=== PATIENT | female | born 1990 ===

== ENCOUNTER 2020-01-28 07:21 | Inpatient (IN) | payer BC ==
[2020-01-28] MEDS ORDERED: Ondansetron 4 MG/2 ML SDV IVPUSH PRN (08:20)
[2020-01-28] MEDS ORDERED: Tranexamic Acid 1,000 MG in Sodium Chloride 0.9% 100 ML IV PRN (08:20)
[2020-01-28] MEDS ORDERED: Nalbuphine 10 MG/1 ML Vial IVPUSH PRN (08:20)
[2020-01-28] MEDS ORDERED: Carboprost Tromethamine 250 MCG/1 ML Amp IM PRN (08:20)
[2020-01-28] MEDS ORDERED: Methylergonovine 0.2 MG/1 ML Amp IM PRN (08:20)
[2020-01-28] MEDS ORDERED: Sodium Chloride 0.9% 10 ML SDV IV PRN (08:20)
[2020-01-28] MEDS ORDERED: Lidocaine 1% 50 ML MDV INJECT PRN (08:20)
[2020-01-28] MEDS ORDERED: Misoprostol 25 MCG (1/4 of 100 MCG) Tab PO PRN (08:20)
[2020-01-28] MEDS ORDERED: Sodium Chloride 0.9% 10 ML Syringe FLUSH PRN (08:20)
[2020-01-28] MEDS ORDERED: Terbutaline 1 MG/ML SDV SUBCUT PRN (08:20)
[2020-01-28] MEDS ORDERED: Misoprostol 200 MCG Tab PO PRN (08:20)
[2020-01-28] MEDS ORDERED: Sodium Chloride 0.9% 2.5 ML Syringe FLUSH PRN (08:20)
[2020-01-28] MEDS ORDERED: Misoprostol 25 MCG (1/4 of 100 MCG) Tab VAG PRN (08:20)
[2020-01-28] MEDS ORDERED: Water For Irrigation,Sterile 1,000 ML Container IRR PRN (08:20)
[2020-01-28] MEDS ORDERED: Oxytocin/0.9 % Sodium Chloride 30 UNIT/500 ML BAG IV SCH ×2 (08:30)
[2020-01-28] MEDS: Lactated Ringers 1,000 ML IV SCH ×2 (13:28→16:56)
[2020-01-28] MEDS: Butorphanol 1 MG/ML SDV IVPUSH PRN ×2 (13:30→14:47)
[2020-01-28] MEDS ORDERED: Ropivacaine 0.2% PF 2 MG/ML 20 ML SDV ONE (17:18)
[2020-01-28] MEDS ORDERED: Bupivicaine/fentaNYL/NS 250 ML ONE (17:18)
--- NOTE | 2020-01-28 17:53 | PCM.PREANE ---
Preanesthetic Assessment - Procedure Proposed Procedure: labor epidural - Anesthesia/Transfusion/Family Hx Anesthesia History: Prior Anesthesia Without Reaction (gastric sleeve) Family History of Anesthesia Reaction: No Transfusion History: No Prior Transfusion(s) - Review of Systems General: No Symptoms Pulmonary: No Symptoms Cardiovascular: No Symptoms Gastrointestinal: No Symptoms Neurological: No Symptoms Other: Reports: None - Physical Assessment Height: 5 ft 5 in Weight: 78.925 kg ASA Class: 2 Mental Status: Alert & Oriented x3 Airway Class: Mallampati = 1 Dentition: Reports: Normal Dentition Thyro-Mental Finger Breadths: 3 Mouth Opening Finger Breadths: 3 ROM/Head Extension: Full Lungs: Clear to Auscultation, Normal Respiratory Effort Cardiovascular: Regular Rate, Regular Rhythm - Lab Values: Laboratory Last Values WBC 12.24 K/uL (4.0-11.0) H 01/28/20 08:55 RBC 5.05 M/uL (4.30-5.90) 01/28/20 08:55 Hgb 11.4 g/dL (12.0-16.0) L 01/28/20 08:55 Hct 37.3 % (36.0-46.0) 01/28/20 08:55 MCV 73.9 fL (80.0-98.0) L 01/28/20 08:55 MCH 22.6 pg (27.0-32.0) L 01/28/20 08:55 MCHC 30.6 g/dL (31.0-37.0) L 01/28/20 08:55 RDW Std Deviation 47.8 fl (28.0-62.0) 01/28/20 08:55 RDW Coeff of Madonna 18 % (11.0-15.0) H 01/28/20 08:55 Plt Count 175 K/uL (150-400) 01/28/20 08:55 Nucleated RBC % 0.0 /100WBC 01/28/20 08:55 Nucleated RBCs # 0 K/uL 01/28/20 08:55 Blood Type O POSITIVE 01/28/20 08:55 Antibody Screen NEGATIVE 01/28/20 08:55 - Allergies Allergies/Adverse Reactions: Allergies Allergy/AdvReac Type Severity Reaction Status Date / Time shrimp Allergy Hives Verified 12/07/19 12:53 - Blood Blood Available: Yes Product(s) Available: PRBC - Acknowledgements Anesthesia Type Planned: Epidural Pt an Appropriate Candidate for the Planned Anesthesia: Yes Alternatives and Risks of Anesthesia Discussed w Pt/Guardian: Yes Pt/Guardian Understands and Agrees with Anesthesia Plan: Yes PreAnesthesia Questionnaire - Past Health History Medical/Surgical History: Denies Medical/Surgical History Gastrointestinal History: Reports: Other (See Below) Other Gastrointestinal History: Cholestasis during previous 2 . [employer] History: Reports: - Past Surgical History GI Surgical History: Reports: Other (See Below) Other GI Surgeries/Procedures: Vertical sleeve gastrectomy 2016 - SUBSTANCE USE Smoking Status *Q: Former Smoker Tobacco Use Within Last Twelve Months: Cigarettes Second Hand Smoke Exposure: No Recreational Drug Use History: Yes Recreational Drug Type: Reports: Marijuana/Hashish Recreational Drug Last Use: 05/2019 - HOME MEDS Home Medications: Home Meds Ferrous Sulfate [Iron] 1 tab PO BID 12/07/19 [History] Magnesium 250 mg PO DAILY 12/07/19 [History] Sertraline [Zoloft] 50 mg PO DAILY 12/07/19 [History] - CURRENT (IN HOUSE) MEDS Current Meds: Current Medications Butorphanol Tartrate (Stadol) 1 mg IVPUSH Q1H PRN PRN Reason: Pain Last Admin: 01/28/20 14:47 Dose: 1 mg Carboprost Tromethamine (Hemabate Ds) 250 mcg IM ASDIRECTED PRN PRN Reason: Post Hemorrhage Lactated Ringer's (Ringers, Lactated) 1,000 mls @ 150 mls/hr IV ASDIRECTED RAMSEY Last Admin: 01/28/20 16:56 Dose: 500 mls/hr Oxytocin/Sodium Chloride (Oxytocin 30 Unit/500 Ml-Ns) 30 unit in 500 mls @ 2 mls/hr IV TITRATE [facility]; Protocol Oxytocin/Sodium Chloride (Oxytocin 30 Unit/500 Ml-Ns) 30 unit in 500 mls @ 555 mls/hr IV TITRATE [facility] Tranexamic Acid 1,000 mg/ (Sodium Chloride) 110 mls @ 660 mls/hr IV ONETIME PRN PRN Reason: Bleeding Lidocaine HCl (Xylocaine 1%) 50 ml INJECT ONETIME PRN PRN Reason: Laceration repair Methylergonovine Maleate (Methergine) 0.2 mg IM ASDIRECTED PRN PRN Reason: Post Hemorrhage Misoprostol (Cytotec) 25 mcg VAG ONETIME PRN PRN Reason: Cervical Ripening Last Admin: 01/28/20 09:08 Dose: 25 mcg Misoprostol (Cytotec) 200 mcg PO ONETIME PRN PRN Reason: Post Hemorrhage Misoprostol (Cytotec) 25 mcg PO Q4H PRN PRN Reason: Cervical Ripening Nalbuphine HCl (Nubain) 10 mg IVPUSH Q1H PRN PRN Reason: Pain (severe 7-10) Ondansetron HCl (Zofran) 4 mg IVPUSH Q4H PRN PRN Reason: Nausea/Vomiting Sertraline HCl (Zoloft) 50 mg PO DAILY [facility]SE[facility] Sodium Chloride (Saline Flush) 10 ml FLUSH ASDIRECTED PRN PRN Reason: Keep Vein Open Sodium Chloride (Saline Flush) 2.5 ml FLUSH ASDIRECTED PRN PRN Reason: Keep Vein Open Sodium Chloride (Normal Saline) 10 ml IV ASDIRECTED PRN PRN Reason: IV Use Sterile Water (Sterile Water For Irrigation) 1,000 ml IRR ASDIRECTED PRN PRN Reason: delivery Terbutaline Sulfate (Brethine) 0.25 mg SUBCUT ASDIRECTED PRN PRN Reason: Tacysystole Discontinued Medications Fentanyl/Bupivacaine HCl (Fentanyl/Bupivacaine/Ns 2 Mcg-0.125% 250 Ml) Confirm Administered Dose 250 mls @ as directed .ROUTE .STK-MED ONE Stop: 01/28/20 17:19 Ropivacaine (Naropin 0.2%) Confirm Administered Dose 20 ml .ROUTE .STK-MED ONE Stop: 01/28/20 17:19
[2020-01-28] MEDS ORDERED: Lanolin 100% Cream 7 GM Tube TOP PRN (20:17)
[2020-01-28] MEDS ORDERED: Acetaminophen 500 MG Tab PO PRN (20:17)
[2020-01-28] MEDS ORDERED: Benzocaine/Menthol 20%-0.5% Spray 78 GM Cannister TOP PRN (20:17)
[2020-01-28] MEDS ORDERED: Bisacodyl 10 MG Supp RECTAL PRN (20:17)
[2020-01-28] MEDS ORDERED: Witch Hazel Medicated Pads 40/Jar TOP PRN (20:17)
[2020-01-28] MEDS ORDERED: Ibuprofen 400 MG Tab PO PRN (20:17)
[2020-01-28] MEDS ORDERED: Docusate Sodium 100 MG Cap PO PRN (20:17)
--- NOTE | 2020-01-28 21:23 | OR ---
SURGEON: Stefano Kelley MD DATE OF PROCEDURE: 01/28/2020 INDICATION FOR PROCEDURE: A 29-year-old, G3, P2-0-0-2, at 39 weeks and 3 days, admitted for elective induction of labor. The patient had uncomplicated and was GBS negative. She received one Cytotec for induction and started to have regular contractions. Category 1 tracing. She had AROM with thin meconium. She received an epidural with good pain control. She progressed to fully dilated and started pushing with contractions. PREOPERATIVE DIAGNOSIS: Wilcox intrauterine at 39 weeks and 3 days. POSTOPERATIVE DIAGNOSIS: Wilcox intrauterine at 39 weeks and 3 days. PROCEDURE PERFORMED: Normal spontaneous vaginal delivery, repair of first-degree laceration. ANESTHESIA: Epidural. ANESTHESIOLOGIST: Dr. Todd Tapia. ESTIMATED BLOOD LOSS: 300 mL. FINDINGS: Viable female infant. score of 7 and 9. Weight of 7 pounds 3 ounces. DESCRIPTION OF PROCEDURE: The patient pushed with contractions for approximately 10 minutes. head delivered over intact perineum in occiput anterior position, restituted ROT. Anterior shoulder delivered easily. Tight nuchal cord x1 was noted. Posterior shoulder and remaining body were delivered without difficulty. Cord was also wrapped under the left arm. The cord was reduced after delivery. The baby was placed on maternal chest and evaluated by awaiting nursery staff. The baby was pink, moving all extremities, and crying after delivery. The umbilical cord was clamped and cut after 60 seconds and no longer pulsating. The umbilical cord gases were obtained. The placenta was removed with gentle traction on the umbilical cord. It was examined to be intact with 3-vessel cord. Vagina was examined, she had a first-degree laceration that extended into the vagina. 3-0 Vicryl was used to repair the laceration in usual fashion. Hemostasis was confirmed after repair. The bleeding was light and the fundus firm. The patient tolerated the procedure well and was given care instructions. BERE / MADHURI /[id number] ROMEL
[2020-01-28] MEDS: Sertraline 50 MG Tab PO SCH (23:29)
[2020-01-29] MEDS: Ibuprofen 800 MG Tab PO PRN ×3 (01:34→19:47)
[2020-01-29] MEDS: Acetaminophen 500 MG Tab PO PRN ×3 (05:02→16:45)
[2020-01-29] MEDS: Sertraline 50 MG Tab PO SCH (09:13)
--- NOTE | 2020-01-29 11:47 | PCM.PNPP ---
- General Info Date of Service: 01/29/20 Functional Status: Reports: Pain Controlled, Tolerating Diet, Ambulating, Urinating - Review of Systems General: Reports: No Symptoms HEENT: Reports: No Symptoms Pulmonary: Reports: No Symptoms Cardiovascular: Reports: No Symptoms Gastrointestinal: Reports: No Symptoms Genitourinary: Reports: No Symptoms Musculoskeletal: Reports: No Symptoms Skin: Reports: No Symptoms Neurological: Reports: No Symptoms Psychiatric: Reports: No Symptoms - Patient Data Vital Signs - Most Recent: Last Vital Signs Temp 36.1 C 01/29/20 08:00 Pulse 68 01/29/20 08:00 Resp 16 01/29/20 08:00 BP 115/71 01/29/20 08:00 Pulse Ox 96 01/29/20 08:00 Weight - Most Recent: 174 lb Lab Results - Last 24 Hours: Laboratory Results - last 24 hr 01/29/20 Range/Units 06:00 Hgb 9.7 L (12.0-16.0) g/dL Hct 32.7 L (36.0-46.0) % Med Orders - Current: Current Medications Acetaminophen (Tylenol Extra Strength) 500 mg PO Q4H PRN PRN Reason: Pain Acetaminophen (Tylenol Extra Strength) 1,000 mg PO Q4H PRN PRN Reason: Pain Last Admin: 01/29/20 09:53 Dose: 1,000 mg Benzocaine/Menthol (Dermoplast Pain Relief 20%-0.5% [place]) 78 gm TOP ASDIRECTED PRN PRN Reason: Perineal Comfort Measure Last Admin: 01/29/20 01:32 Dose: 1 can Bisacodyl (Dulcolax) 10 mg RECTAL ONETIME PRN PRN Reason: Constipation Butorphanol Tartrate (Stadol) 1 mg IVPUSH Q1H PRN PRN Reason: Pain Last Admin: 01/28/20 14:47 Dose: 1 mg Carboprost Tromethamine (Hemabate Ds) 250 mcg IM ASDIRECTED PRN PRN Reason: Post Hemorrhage Docusate Sodium (Colace) 100 mg PO BID PRN PRN Reason: Constipation Emollient Ointment (Lansinoh Hpa) 0 gm TOP ASDIRECTED PRN PRN Reason: Sore Nipples Last Admin: 01/29/20 01:33 Dose: 1 tube Lactated Ringer's (Ringers, Lactated) 1,000 mls @ 150 mls/hr IV ASDIRECTED RAMSEY Last Admin: 01/28/20 16:56 Dose: 500 mls/hr Oxytocin/Sodium Chloride (Oxytocin 30 Unit/500 Ml-Ns) 30 unit in 500 mls @ 2 mls/hr IV TITRATE [facility]; Protocol Oxytocin/Sodium Chloride (Oxytocin 30 Unit/500 Ml-Ns) 30 unit in 500 mls @ 555 mls/hr IV TITRATE [facility] Tranexamic Acid 1,000 mg/ (Sodium Chloride) 110 mls @ 660 mls/hr IV ONETIME PRN PRN Reason: Bleeding Ibuprofen (Motrin) 400 mg PO Q4H PRN PRN Reason: Pain Ibuprofen (Motrin) 800 mg PO Q6H PRN PRN Reason: Pain Last Admin: 01/29/20 01:34 Dose: 800 mg Lidocaine HCl (Xylocaine 1%) 50 ml INJECT ONETIME PRN PRN Reason: Laceration repair Methylergonovine Maleate (Methergine) 0.2 mg IM ASDIRECTED PRN PRN Reason: Post Hemorrhage Misoprostol (Cytotec) 25 mcg VAG ONETIME PRN PRN Reason: Cervical Ripening Last Admin: 01/28/20 09:08 Dose: 25 mcg Misoprostol (Cytotec) 200 mcg PO ONETIME PRN PRN Reason: Post Hemorrhage Misoprostol (Cytotec) 25 mcg PO Q4H PRN PRN Reason: Cervical Ripening Nalbuphine HCl (Nubain) 10 mg IVPUSH Q1H PRN PRN Reason: Pain (severe 7-10) Ondansetron HCl (Zofran) 4 mg IVPUSH Q4H PRN PRN Reason: Nausea/Vomiting Sertraline HCl (Zoloft) 50 mg PO DAILY RAMSEY Last Admin: 01/29/20 09:13 Dose: 50 mg Sodium Chloride (Saline Flush) 10 ml FLUSH ASDIRECTED PRN PRN Reason: Keep Vein Open Sodium Chloride (Saline Flush) 2.5 ml FLUSH ASDIRECTED PRN PRN Reason: Keep Vein Open Sodium Chloride (Normal Saline) 10 ml IV ASDIRECTED PRN PRN Reason: IV Use Sterile Water (Sterile Water For Irrigation) 1,000 ml IRR ASDIRECTED PRN PRN Reason: delivery Terbutaline Sulfate (Brethine) 0.25 mg SUBCUT ASDIRECTED PRN PRN Reason: Tacysystole Sacha Chavez (Tucks) 1 pad TOP ASDIRECTED PRN PRN Reason: comfort care Last Admin: 01/29/20 01:32 Dose: 1 tub Discontinued Medications Fentanyl/Bupivacaine HCl (Fentanyl/Bupivacaine/Ns 2 Mcg-0.125% 250 Ml) Confirm Administered Dose 250 mls @ as directed .ROUTE .STK-MED ONE Stop: 01/28/20 17:19 Last Admin: 01/28/20 23:29 Dose: Not Given Ropivacaine (Naropin 0.2%) Confirm Administered Dose 20 ml .ROUTE .STK-MED ONE Stop: 01/28/20 17:19 Last Admin: 01/28/20 23:29 Dose: Not Given - Infant Interaction Disposition, : Moore at Bedside Infant Interaction: Holding Support Person: - Recovery Exam Fundal Tone: Firm Fundal Level: 1 Fingerbreadths Below Umbilicus Fundal Placement: Midline Lochia Amount: Small Lochia Color: Rubra/Red Perineum Description: Edematous Episiotomy/Laceration: None Urinary Elimination: Voided - Exam General: Alert, Oriented, Cooperative HEENT: Pupils Equal, Pupils Reactive Neck: Supple, Trachea Midline, No JVD Lungs: Normal Respiratory Effort GI/Abdominal Exam: Soft, Non-Tender, No Organomegaly Extremities: Normal Inspection, Normal Range of Motion, Non-Tender, No Pedal Edema Skin: Warm, Dry, Intact Neurological: No New Focal Deficit Psy/Mental Status: Alert, Normal Affect, Normal Mood - Problem List Review Problem List Initiated/Reviewed/Updated: Yes - My Orders Last 24 Hours: My Active Orders 01/28/20 20:17 Patient Status [ADT] Routine May Shower [RC] ASDIRECTED Up ad Anali [RC] ASDIRECTED Acetaminophen [Tylenol Extra Strength] 1,000 mg PO Q4H PRN Acetaminophen [Tylenol Extra Strength] 500 mg PO Q4H PRN Benzocaine/Menthol [Dermoplast Pain Relief 20%-0.5% [place]] 78 gm TOP ASDIRECTED PRN Docusate Sodium [Colace] 100 mg PO BID PRN Ibuprofen [Motrin] 400 mg PO Q4H PRN Ibuprofen [Motrin] 800 mg PO Q6H PRN Lanolin [Lansinoh HPA] See Dose Instructions TOP ASDIRECTED PRN bisacodyL [Dulcolax] 10 mg RECTAL ONETIME PRN witch Dee [Tucks] 1 pad TOP ASDIRECTED PRN Assess Lochia [WOMSER] Per Unit Routine Assess Uterine Involution [WOMSER] Per Unit Routine Peripheral IV Discontinue [OM.PC] Routine 01/29/20 11:43 Ready for Discharge [RC] PER UNIT ROUTINE - Assessment Assessment:: 29yo PPD1 s/p , stable and recovering well. - Plan Plan:: vitals stable ambulating and tolerating PO Hgb 9.4 today, bleeding light, denies s/s of anemia. Continue iron BID Stable for discharge home, given care instructions
--- NOTE | 2020-01-29 14:40 | PCM48HPAN ---
Post Anesthesia Note - EVALUATION WITHIN 48HRS OF ANESTHETIC Vital Signs in Normal Range: Yes Patient Participated in Evaluation: Yes Respiratory Function Stable: Yes Airway Patent: Yes Cardiovascular Function Stable: Yes Hydration Status Stable: Yes Pain Control Satisfactory: Yes Nausea and Vomiting Control Satisfactory: Yes Mental Status Recovered: Yes Vital Signs: Last Vital Signs Temp 36.1 C 01/29/20 08:00 Pulse 68 01/29/20 08:00 Resp 16 01/29/20 08:00 BP 115/71 01/29/20 08:00 Pulse Ox 96 01/29/20 08:00
== END 2020-01-29 22:10 | disposition home or self-care (01) | DRG 560 ==
LOC: MW.OBCHECK 07:21 → MW.OB 07:23 → OBSVTOIN 19:24 → MW.OB 23:44
PROVIDERS: ADMIT Obstetrics & Gynecology; ATTEND Obstetrics & Gynecology
PROC: 10E0XZZ Delivery of Products of Conception, External Approach (ICD-10-PCS; principal; 2020-01-28)
PROC: 10907ZC Drainage of Amniotic Fluid, Therapeutic from Products of Conception, Via Natural or Artificial Opening (ICD-10-PCS; 2020-01-28)
PROC: 0HQ9XZZ Repair Perineum Skin, External Approach (ICD-10-PCS; 2020-01-28)
PROC: 3E0R3BZ Introduction of Anesthetic Agent into Spinal Canal, Percutaneous Approach (ICD-10-PCS; 2020-01-28)
DX: O77.0 Labor and delivery complicated by meconium in amniotic fluid (principal); O76 Abnormality in fetal heart rate and rhythm complicating labor and delivery; O69.1XX0 Labor and delivery complicated by cord around neck, with compression, not applicable or unspecified; O70.0 First degree perineal laceration during delivery; Z3A.39 39 weeks gestation of pregnancy; Z37.0 Single live birth
CPT/HCPCS: 36415; 51702; 59025; 59409; 85014; 85018; 85027; 86592; 86593; 86850; 86900; 86901; A9270-GY; J0595; J2795; J3010; J7120